=== PATIENT | female | born 1990 | race Caucasian/White ===

== ENCOUNTER 2019-09-14 10:11 | Inpatient (IN) | payer MEDICAID ==
[~2019-09-14] VITALS: Ht 162.6 cm; Wt 84.6 kg
[2019-09-14] MEDS: D5%-LACTATED RINGERS 1,000 ML IV SCH ×2 (13:14→21:14)
[2019-09-14] MEDS ORDERED: OXYTOCIN 30U/ 0.9% NaCL 500ML 500 ML IV PRN (13:14)
[2019-09-14] MEDS ORDERED: OXYTOCIN 30U/ 0.9% NaCL 500ML 500 ML IV ONE (13:14)
[2019-09-14] MEDS ORDERED: PREN1TAB60 PO (13:15)
[2019-09-14] MEDS ORDERED: ONDA4TAB7 PO (13:15)
[2019-09-14] MEDS ORDERED: OXYTOCIN 30U/ 0.9% NaCL 500ML 500 ML ONE (13:19)
[2019-09-14] MEDS ORDERED: NEWBORN KIT ONE (13:20)
[2019-09-14] MEDS ORDERED: LIDOCAINE 1%, 20ML ONE (13:20)
[2019-09-14] MEDS ORDERED: MISOPROSTOL 200 MCG TABLET ONE (13:20)
[2019-09-14] MEDS: LACTATED RINGERS 1,000 ML IV SCH ×2 (13:25→21:45)
[2019-09-14] MEDS ORDERED: TERBUTALINE 1 MG/ML, 1ML IVPush PRN (13:30)
[2019-09-14] MEDS ORDERED: ONDANSETRON 2MG/ML, 2ML IVPush PRN (13:30)
[2019-09-14] MEDS ORDERED: FENTANYL PF 100 MCG/2ML IV PRN (13:30)
[2019-09-14] MEDS ORDERED: SODIUM CHLORIDE FLUSH 10ML SYR IVF PRN (13:30)
[2019-09-14] MEDS ORDERED: TERBUTALINE 1 MG/ML, 1ML SQ PRN (13:30)
[2019-09-14] MEDS ORDERED: CALCIUM CARBONATE 500 MG TAB.CHEW PO PRN (13:30)
[2019-09-14 14:05] LABS: BASOPHILS # (AUTO) 0.03 x10^3/uL (0-0.1); BASOPHILS % (AUTO) 0 % (0-1); EOSINOPHILS # (AUTO) 0.02 x10^3/uL (0-0.4); EOSINOPHILS % (AUTO) 0 % (1-7); LYMPHOCYTES # (AUTO) 1.71 x10^3/uL (1-3.4); LYMPHOCYTES % (AUTO) 25 % (22-44); MD NO; MEAN CORPUSCULAR HGB CONC 31.8 g/dL (32.4-35.8); MEAN CORPUSCULAR VOLUME 78.5 fL (80-100); MEAN PLATELET VOLUME 9.9 fL (7.4-10.4); MONOCYTES # (AUTO) 0.36 x10^3/uL (0.2-0.8); MONOCYTES % (AUTO) 5 % (2-9); NEUTROPHILS # (AUTO) 4.83 x10^3/uL (1.8-6.8); NEUTROPHILS % (AUTO) 70 % (42-75); PLATELET COUNT 216 x10^3/uL (130-400); RED BLOOD COUNT 4.34 x10^6/uL (3.82-5.3); RED CELL DISTRIBUTION WIDTH 15.3 % (9.6-15.2)
[2019-09-14 19:15] VITALS: BP 118/70
[2019-09-14] MEDS ORDERED: FENTANYL PF 100 MCG/2ML ONE ×2 (21:43→23:22)
[2019-09-14] MEDS: FENTANYL PF 100 MCG/2ML IVPush PRN ×2 (21:44→23:24)
[2019-09-15] MEDS ORDERED: FENTANYL PF 100 MCG/2ML ONE ×2 (00:58→02:22)
[2019-09-15] MEDS: FENTANYL PF 100 MCG/2ML IVPush PRN ×2 (01:01→02:26)
[2019-09-15] MEDS ORDERED: FENTANYL/BUPIV./NS/PF 250 ML EPIDCONT SCH ×2 (02:21→03:48)
[2019-09-15] MEDS ORDERED: LACTATED RINGERS 1,000 ML IVBOLUS PRN ×2 (02:30→04:00)
[2019-09-15] MEDS ORDERED: FENTANYL/BUPIV./NS/PF 250 ML EPIDCONT ONE ×2 (02:40→03:28)
[2019-09-15] MEDS ORDERED: TERBUTALINE 1 MG/ML, 1ML ONE (03:18)
[2019-09-15] MEDS ORDERED: BUPIVACAINE 0.25% ONE ×2 (03:25→03:28)
[2019-09-15] MEDS ORDERED: LIDOCAINE/MPF 2%-EPI 1:200K, 20 ML ONE ×2 (03:28→06:32)
[2019-09-15] MEDS ORDERED: LACTATED RINGERS 1,000 ML IV SCH ×2 (03:48→08:27)
[2019-09-15] MEDS ORDERED: DIPHENHYDRAMINE 50 MG/ML, 1ML IVPush PRN ×2 (04:00→08:30)
[2019-09-15] MEDS ORDERED: NALOXONE 0.4 MG/ML, 1ML IVPush PRN (04:00)
[2019-09-15] MEDS ORDERED: ONDANSETRON 2MG/ML, 2ML IVPush PRN (04:00)
[2019-09-15] MEDS ORDERED: EPHEDRINE 50 MG/ML, 1ML IVPush PRN ×2 (04:00→08:30)
[2019-09-15] MEDS ORDERED: SODIUM CITRATE/CITRIC ACID 30 ML UDC ONE (06:21)
[2019-09-15] MEDS ORDERED: METOCLOPRAMIDE 5 MG/ML, 2ML ONE (06:21)
[2019-09-15] MEDS ORDERED: CEFAZOLIN 1,000 MG ONE ×3 (06:58→08:01)
[2019-09-15] MEDS ORDERED: OXYTOCIN 10 UNITS/ML, 1ML ONE (06:58)
[2019-09-15] MEDS ORDERED: AZITHROMYCIN 500 MG in SODIUM CHLORIDE 0.9% 250 ML IV ONE (07:00)
[2019-09-15] MEDS ORDERED: ONDANSETRON 2MG/ML, 2ML ONE (07:16)
[2019-09-15] MEDS ORDERED: EPHEDRINE 50 MG/ML, 1ML ONE (07:39)
[2019-09-15] MEDS: LACTATED RINGERS 1,000 ML IV SCH ×2 (08:27→18:27)
[2019-09-15] MEDS: OXYTOCIN 30U/ 0.9% NaCL 500ML 500 ML IV SCH ×2 (08:27→18:27)
[2019-09-15] MEDS ORDERED: MISOPROSTOL 200 MCG TABLET PR PRN (08:30)
[2019-09-15] MEDS ORDERED: LABETALOL 5MG/ML, 20ML IV PRN (08:30)
[2019-09-15] MEDS ORDERED: ONDANSETRON 2MG/ML, 2ML IV PRN ×2 (08:30)
[2019-09-15] MEDS ORDERED: OXYcodone 5 MG/5 ML ORAL.SOL UDC PO PRN (08:30)
[2019-09-15] MEDS ORDERED: HALOPERIDOL 5 MG/ML IV PRN (08:30)
[2019-09-15] MEDS ORDERED: DEXAMETHASONE 4 MG/ML, 1ML IV PRN (08:30)
[2019-09-15] MEDS: KETOROLAC 30 MG/1 ML IV SCH ×3 (08:30→20:09)
[2019-09-15] MEDS ORDERED: IBUPROFEN 600 MG TABLET PO PRN (08:30)
[2019-09-15] MEDS ORDERED: ACETAMINOPHEN 325 MG TABLET PO PRN (08:30)
[2019-09-15] MEDS ORDERED: METHYLERGONOVINE 0.2 MG/ML IM PRN (08:30)
[2019-09-15] MEDS ORDERED: METOCLOPRAMIDE 5 MG/ML, 2ML IV PRN (08:30)
[2019-09-15] MEDS ORDERED: SIMETHICONE 80 MG CHEW TAB PO PRN (08:30)
[2019-09-15] MEDS ORDERED: PROMETHAZINE 25 MG/ML, 1ML IV PRN (08:30)
[2019-09-15] MEDS ORDERED: IBUPROFEN 800 MG TABLET PO PRN (08:30)
[2019-09-15] MEDS ORDERED: FENTANYL PF 100 MCG/2ML IV PRN (08:30)
[2019-09-15] MEDS ORDERED: MORPHINE SULFATE 4 MG/ML, 1ML IVPush PRN (08:30)
[2019-09-15] MEDS ORDERED: SODIUM CITRATE/CITRIC ACID 30 ML UDC PO ONE (10:00)
[2019-09-15] MEDS ORDERED: METOCLOPRAMIDE 5 MG/ML, 2ML IV ONE (10:00)
[2019-09-15] MEDS: OXYcodone/APAP 5/325MG TABLET PO PRN ×4 (10:32→22:23)
[2019-09-15] MEDS: PRENATAL VIT/IRON/FA 1 EACH TABLET PO SCH (10:32)
[2019-09-15 10:45] VITALS: BP 118/77
[2019-09-15 16:08] LABS: BASOPHILS # (AUTO) 0.03 x10^3/uL (0-0.1); BASOPHILS % (AUTO) 0 % (0-1); EOSINOPHILS # (AUTO) 0.01 x10^3/uL (0-0.4); EOSINOPHILS % (AUTO) 0 % (1-7); LYMPHOCYTES # (AUTO) 1.36 x10^3/uL (1-3.4); LYMPHOCYTES % (AUTO) 14 % (22-44); MD NO; MEAN CORPUSCULAR HEMOGLOBIN 25.3 pg (27.0-34.8); MEAN CORPUSCULAR HGB CONC 32.4 g/dL (32.4-35.8); MEAN CORPUSCULAR VOLUME 78.1 fL (80-100); MEAN PLATELET VOLUME 9.5 fL (7.4-10.4); MONOCYTES % (AUTO) 4 % (2-9); NEUTROPHILS # (AUTO) 7.83 x10^3/uL (1.8-6.8); NEUTROPHILS % (AUTO) 81 % (42-75); PLATELET COUNT 169 x10^3/uL (130-400); RED BLOOD COUNT 3.39 x10^6/uL (3.82-5.3); RED CELL DISTRIBUTION WIDTH 15.1 % (9.6-15.2)
[2019-09-15 16:30] VITALS: BP 123/73
[2019-09-15 20:00] VITALS: BP 108/72
[2019-09-15] MEDS: DOCUSATE 100 MG CAPSULE PO PRN (20:09)
[2019-09-16 00:39] VITALS: BP 111/81
[2019-09-16] MEDS: KETOROLAC 30 MG/1 ML IV SCH ×4 (02:38→20:39)
[2019-09-16] MEDS: OXYcodone/APAP 5/325MG TABLET PO PRN ×4 (02:38→20:40)
[2019-09-16 03:19] VITALS: BP 106/83
[2019-09-16] MEDS: LACTATED RINGERS 1,000 ML IV SCH ×2 (04:27→21:18)
[2019-09-16] MEDS: OXYTOCIN 30U/ 0.9% NaCL 500ML 500 ML IV SCH ×2 (04:49→21:18)
[2019-09-16 07:20] VITALS: BP 110/74
[2019-09-16] MEDS: DOCUSATE 100 MG CAPSULE PO PRN ×2 (08:35→20:40)
[2019-09-16] MEDS: PRENATAL VIT/IRON/FA 1 EACH TABLET PO SCH (08:35)
[2019-09-16 20:02] VITALS: BP 126/78
[2019-09-16 20:50] VITALS: BP 112/73
[2019-09-16] MEDS ORDERED: MEASLES,MUMPS&RUBELLA VACC/PF 0.5 ML SQ-VACC ONE (21:20)
[2019-09-17] MEDS: OXYTOCIN 30U/ 0.9% NaCL 500ML 500 ML IV SCH ×3 (00:27→20:27)
[2019-09-17] MEDS: LACTATED RINGERS 1,000 ML IV SCH ×3 (00:27→18:22)
[2019-09-17] MEDS: KETOROLAC 30 MG/1 ML IV SCH (02:31)
[2019-09-17] MEDS: OXYcodone/APAP 5/325MG TABLET PO PRN ×2 (02:32→14:51)
[2019-09-17 08:20] VITALS: BP 120/70
[2019-09-17] MEDS ORDERED: IBUPROFEN 800 MG TABLET PO PRN (08:30)
[2019-09-17 09:23] LABS: BASOPHILS # (AUTO) 0.01 x10^3/uL (0-0.1); BASOPHILS % (AUTO) 0 % (0-1); EOSINOPHILS # (AUTO) 0.08 x10^3/uL (0-0.4); EOSINOPHILS % (AUTO) 1 % (1-7); LYMPHOCYTES # (AUTO) 1.75 x10^3/uL (1-3.4); LYMPHOCYTES % (AUTO) 16 % (22-44); MD NO; MEAN CORPUSCULAR HEMOGLOBIN 25.2 pg (27.0-34.8); MEAN CORPUSCULAR HGB CONC 31.7 g/dL (32.4-35.8); MEAN CORPUSCULAR VOLUME 79.5 fL (80-100); MEAN PLATELET VOLUME 9.1 fL (7.4-10.4); MONOCYTES # (AUTO) 0.52 x10^3/uL (0.2-0.8); MONOCYTES % (AUTO) 5 % (2-9); NEUTROPHILS # (AUTO) 8.59 x10^3/uL (1.8-6.8); NEUTROPHILS % (AUTO) 79 % (42-75); PLATELET COUNT 223 x10^3/uL (130-400); RED BLOOD COUNT 3.36 x10^6/uL (3.82-5.3); RED CELL DISTRIBUTION WIDTH 15.6 % (9.6-15.2)
[2019-09-17] MEDS ORDERED: AMPICILLIN/SULBACTAM 2 GM in SODIUM CHLORIDE 0.9% 100 ML IV SCH (09:30)
[2019-09-17] MEDS: FERROUS SULFATE 325 MG TABLET PO SCH ×2 (09:30→17:21)
[2019-09-17] MEDS: PRENATAL VIT/IRON/FA 1 EACH TABLET PO SCH (09:30)
[2019-09-17] MEDS: IBUPROFEN 600 MG TABLET PO PRN ×3 (11:00→23:26)
[2019-09-17] MEDS: AMPICILLIN/SULBACTAM 3 GM in SODIUM CHLORIDE 0.9% 100 ML IV SCH ×3 (11:00→23:16)
[2019-09-17 12:15] VITALS: BP 108/70
[2019-09-17 13:59] LABS: RAPID INFLUENZA A Negative (Negative); RAPID INFLUENZA B Negative (Negative)
[2019-09-17 16:26] VITALS: BP 110/68
[2019-09-17] MEDS ORDERED: LACTATED RINGERS 500 ML IVBOLUS ONE (17:00)
[2019-09-17] MEDS: ACETAMINOPHEN 500 MG TABLET PO PRN (17:21)
[2019-09-17 20:30] VITALS: BP 100/64
[2019-09-17] MEDS: OXYcodone IR 5MG TABLET PO PRN (23:26)
[2019-09-18] VITALS (7 sets, daily range): BP systolic 95–121; BP diastolic 51–84
[2019-09-18] MEDS: AMPICILLIN/SULBACTAM 3 GM in SODIUM CHLORIDE 0.9% 100 ML IV SCH ×4 (04:46→23:00)
[2019-09-18] MEDS: LACTATED RINGERS 1,000 ML IV SCH ×3 (04:48→19:30)
[2019-09-18] MEDS: IBUPROFEN 600 MG TABLET PO PRN ×3 (04:56→19:30)
[2019-09-18] MEDS: ACETAMINOPHEN 500 MG TABLET PO PRN ×2 (04:57→23:44)
[2019-09-18] MEDS: OXYcodone IR 5MG TABLET PO PRN ×3 (04:57→17:03)
[2019-09-18 05:56] LABS: BASOPHILS # (AUTO) 0.02 x10^3/uL (0-0.1); BASOPHILS % (AUTO) 0 % (0-1); EOSINOPHILS # (AUTO) 0.07 x10^3/uL (0-0.4); EOSINOPHILS % (AUTO) 1 % (1-7); LYMPHOCYTES # (AUTO) 0.83 x10^3/uL (1-3.4); LYMPHOCYTES % (AUTO) 14 % (22-44); MD NO; MEAN CORPUSCULAR HEMOGLOBIN 25.1 pg (27.0-34.8); MEAN CORPUSCULAR HGB CONC 31.9 g/dL (32.4-35.8); MEAN CORPUSCULAR VOLUME 78.8 fL (80-100); MEAN PLATELET VOLUME 8.3 fL (7.4-10.4); MONOCYTES # (AUTO) 0.13 x10^3/uL (0.2-0.8); MONOCYTES % (AUTO) 2 % (2-9); NEUTROPHILS # (AUTO) 4.96 x10^3/uL (1.8-6.8); NEUTROPHILS % (AUTO) 83 % (42-75); PLATELET COUNT 212 x10^3/uL (130-400); RED BLOOD COUNT 2.93 x10^6/uL (3.82-5.3); RED CELL DISTRIBUTION WIDTH 15.5 % (9.6-15.2)
[2019-09-18] MEDS: OXYTOCIN 30U/ 0.9% NaCL 500ML 500 ML IV SCH ×2 (06:27→14:31)
[2019-09-18] MEDS: PRENATAL VIT/IRON/FA 1 EACH TABLET PO SCH (08:53)
[2019-09-18] MEDS: FERROUS SULFATE 325 MG TABLET PO SCH (08:54)
[2019-09-18 11:42] LABS: MEAN CORPUSCULAR HGB CONC 31.8 g/dL (32.4-35.8); MEAN CORPUSCULAR VOLUME 78.6 fL (80-100); MEAN PLATELET VOLUME 7.7 fL (7.4-10.4); PLATELET COUNT 216 x10^3/uL (130-400); RED CELL DISTRIBUTION WIDTH 15.7 % (9.6-15.2)
[2019-09-18 11:52] LABS: ALBUMIN 1.6 g/dL (3.4-5.0); ANION GAP 6 mmol/L (5-15); CALCIUM 7.8 mg/dL (8.5-10.1); CHLORIDE 106 mmol/L (98-107)
[2019-09-18 11:59] LABS: ALANINE AMINOTRANSFERASE 33 U/L (12-78); ALKALINE PHOSPHATASE 112 U/L (45-117); BILIRUBIN,TOTAL 0.2 mg/dL (0.2-1.0); CREATININE 0.36 mg/dL (0.55-1.02)
[2019-09-18 12:05] LABS: BASOPHILS % (AUTO) 0 % (0-1); EOSINOPHILS # (AUTO) 0.03 x10^3/uL (0-0.4); EOSINOPHILS % (AUTO) 1 % (1-7); LYMPHOCYTES # (AUTO) 0.44 x10^3/uL (1-3.4); LYMPHOCYTES % (AUTO) 10 % (22-44); MD SCAN; MONOCYTES # (AUTO) 0.19 x10^3/uL (0.2-0.8); MONOCYTES % (AUTO) 4 % (2-9); NEUTROPHILS # (AUTO) 3.86 x10^3/uL (1.8-6.8); NEUTROPHILS % (AUTO) 85 % (42-75)
[2019-09-18] MEDS: DOCUSATE 100 MG CAPSULE PO PRN (19:30)
[2019-09-18] MEDS ORDERED: OMNIPAQUE 350 MG/ML, 100ML BOTTLE ONE (23:47)
[2019-09-19] VITALS (9 sets, daily range): BP systolic 110–124; BP diastolic 63–84
[2019-09-19] MEDS: IBUPROFEN 600 MG TABLET PO PRN ×3 (02:11→18:22)
[2019-09-19] MEDS: OXYTOCIN 30U/ 0.9% NaCL 500ML 500 ML IV SCH ×2 (02:27→12:27)
[2019-09-19] MEDS ORDERED: PHARMACOKINETIC MONITORING MC PRN (04:00)
[2019-09-19] MEDS ORDERED: PHARMACOKINETIC CONSULTATION MC ONE (04:00)
[2019-09-19] MEDS: LACTATED RINGERS 1,000 ML IV SCH ×3 (04:15→19:00)
[2019-09-19] MEDS: CLINDAMYCIN PMX 900MG/50ML 50 ML IV SCH ×3 (04:35→20:08)
[2019-09-19] MEDS: GENTAMICIN 400 MG in SODIUM CHLORIDE 0.9% 100 ML IV SCH (05:21)
[2019-09-19] MEDS: AMPICILLIN 2 GM in SODIUM CHLORIDE 0.9% 100 ML IV SCH ×3 (06:30→18:23)
[2019-09-19 07:43] LABS: MEAN CORPUSCULAR HEMOGLOBIN 25.2 pg (27.0-34.8); MEAN CORPUSCULAR VOLUME 78.8 fL (80-100); MEAN PLATELET VOLUME 8.3 fL (7.4-10.4); PLATELET COUNT 226 x10^3/uL (130-400); RED CELL DISTRIBUTION WIDTH 16.1 % (9.6-15.2)
[2019-09-19 08:09] LABS: MD YES
[2019-09-19 08:12] LABS: BAND#(MANUAL) 0.35 x10^3/uL; BANDS%(MANUAL) 6 % (0-7); BASOS#(MANUAL) 0.06 x10^3/uL (0-0.1); BASOS% (MANUAL) 1 % (0-1); EOS#(MANUAL) 0.18 x10^3/uL (0.0-0.4); EOS% (MANUAL) 3 % (1-7); LYMPH#(MANUAL) 1.18 x10^3/uL (1-3.4); LYMPHS% (MANUAL) 20 % (22-44); MONOS% (MANUAL) 5 % (2-9); SEG#(MANUAL) 3.84 x10^3/uL (1.8-6.8); SEGS% (MANUAL) 65 % (42-75)
[2019-09-19 08:13] LABS: ANISOCYTOSIS 1+; HYPOCHROMIA 1+; MICROCYTOSIS 1+
[2019-09-19 08:14] LABS: <PLATELET ESTIMATE> ADEQUATE; <PLT MORPHOLOGY> NORMAL PLT MORPH; OVALOCYTES 1+; POLYCHROMASIA 1+
[2019-09-19] MEDS: DOCUSATE 100 MG CAPSULE PO PRN (08:31)
[2019-09-19] MEDS: PRENATAL VIT/IRON/FA 1 EACH TABLET PO SCH (08:31)
[2019-09-19] MEDS: FERROUS SULFATE 325 MG TABLET PO SCH (08:31)
[2019-09-19] MEDS: GENTAMICIN PER PHARMACY MC SCH (09:00)
[2019-09-19] MEDS: OXYcodone IR 5MG TABLET PO PRN ×2 (10:48→18:22)
[2019-09-20 00:20] VITALS: BP 118/80
[2019-09-20] MEDS: AMPICILLIN 2 GM in SODIUM CHLORIDE 0.9% 100 ML IV SCH ×4 (00:54→19:26)
[2019-09-20] MEDS: IBUPROFEN 600 MG TABLET PO PRN ×3 (04:20→19:26)
[2019-09-20] MEDS: CLINDAMYCIN PMX 900MG/50ML 50 ML IV SCH ×3 (04:20→20:21)
[2019-09-20] MEDS: LACTATED RINGERS 1,000 ML IV SCH ×3 (04:21→19:26)
[2019-09-20 04:24] VITALS: BP 137/86
[2019-09-20] MEDS: GENTAMICIN 400 MG in SODIUM CHLORIDE 0.9% 100 ML IV SCH (05:26)
[2019-09-20 05:56] LABS: BASOPHILS # (AUTO) 0.02 x10^3/uL (0-0.1); BASOPHILS % (AUTO) 0 % (0-1); EOSINOPHILS # (AUTO) 0.11 x10^3/uL (0-0.4); EOSINOPHILS % (AUTO) 2 % (1-7); LYMPHOCYTES # (AUTO) 1.49 x10^3/uL (1-3.4); LYMPHOCYTES % (AUTO) 25 % (22-44); MD NO; MEAN CORPUSCULAR HEMOGLOBIN 25.5 pg (27.0-34.8); MEAN CORPUSCULAR HGB CONC 32.3 g/dL (32.4-35.8); MEAN CORPUSCULAR VOLUME 79.1 fL (80-100); MONOCYTES # (AUTO) 0.59 x10^3/uL (0.2-0.8); MONOCYTES % (AUTO) 10 % (2-9); NEUTROPHILS # (AUTO) 3.65 x10^3/uL (1.8-6.8); NEUTROPHILS % (AUTO) 62 % (42-75); PLATELET COUNT 247 x10^3/uL (130-400); RED BLOOD COUNT 3.07 x10^6/uL (3.82-5.3); RED CELL DISTRIBUTION WIDTH 16.1 % (9.6-15.2)
[2019-09-20 08:00] VITALS: BP 129/84
[2019-09-20] MEDS: PRENATAL VIT/IRON/FA 1 EACH TABLET PO SCH (08:16)
[2019-09-20] MEDS: FERROUS SULFATE 325 MG TABLET PO SCH (08:16)
[2019-09-20] MEDS: DOCUSATE 100 MG CAPSULE PO PRN (08:16)
[2019-09-20] MEDS: GENTAMICIN PER PHARMACY MC SCH (09:00)
[2019-09-20 11:52] VITALS: BP 110/63
[2019-09-20 16:00] VITALS: BP 139/85
[2019-09-20 19:33] VITALS: BP 123/74
[2019-09-21] MEDS: AMPICILLIN 2 GM in SODIUM CHLORIDE 0.9% 100 ML IV SCH ×2 (00:46→07:19)
[2019-09-21] MEDS: OXYcodone IR 5MG TABLET PO PRN ×2 (00:46→19:44)
[2019-09-21 00:50] VITALS: BP 120/78
[2019-09-21] MEDS: IBUPROFEN 600 MG TABLET PO PRN ×3 (02:14→17:26)
[2019-09-21] MEDS: CLINDAMYCIN PMX 900MG/50ML 50 ML IV SCH ×2 (04:24→12:36)
[2019-09-21] MEDS: LACTATED RINGERS 1,000 ML IV SCH ×4 (04:25→20:48)
[2019-09-21 04:29] VITALS: BP 108/72
[2019-09-21] MEDS ORDERED: GENTAMICIN 320 MG in SODIUM CHLORIDE 0.9% 100 ML IV SCH (05:00)
[2019-09-21 07:55] VITALS: BP 117/77
[2019-09-21] MEDS: PRENATAL VIT/IRON/FA 1 EACH TABLET PO SCH (08:09)
[2019-09-21] MEDS: DOCUSATE 100 MG CAPSULE PO PRN ×2 (08:09→19:42)
[2019-09-21] MEDS: FERROUS SULFATE 325 MG TABLET PO SCH (08:09)
[2019-09-21 13:46] VITALS: BP 105/67
[2019-09-21 19:16] VITALS: BP 133/91
[2019-09-22 00:31] VITALS: BP 135/85
[2019-09-22] MEDS: IBUPROFEN 600 MG TABLET PO PRN ×2 (02:21→09:31)
[2019-09-22 08:45] VITALS: BP 130/80
[2019-09-22] MEDS ORDERED: FERR324T5 PO (09:06)
[2019-09-22] MEDS ORDERED: OXYC-302 PO (09:09)
[2019-09-22] MEDS ORDERED: IBUP-1222 PO (09:10)
[2019-09-22] MEDS: PRENATAL VIT/IRON/FA 1 EACH TABLET PO SCH (09:30)
[2019-09-22] MEDS: DOCUSATE 100 MG CAPSULE PO PRN (09:31)
[2019-09-22] MEDS: FERROUS SULFATE 325 MG TABLET PO SCH (09:31)
== END 2019-09-22 11:00 | disposition home or self-care (01) | DRG 786 ==
LOC: MERGE 13:08 → LDIP 13:08 → 2NW 09-15 10:17
PROVIDERS: ADMIT Student in an Organized Health Care Education/Training Program; ATTEND Student in an Organized Health Care Education/Training Program
PROC: 10D00Z1 Extraction of Products of Conception, Low, Open Approach (ICD-10-PCS; principal; 2019-09-15)
PROC: 30233N1 Transfusion of Nonautologous Red Blood Cells into Peripheral Vein, Percutaneous Approach (ICD-10-PCS; 2019-09-19)
DX: O32.8XX0 Maternal care for other malpresentation of fetus, not applicable or unspecified (principal); O75.3 Other infection during labor; D62 Acute posthemorrhagic anemia; G89.18 Other acute postprocedural pain; J45.909 Unspecified asthma, uncomplicated; O76 Abnormality in fetal heart rate and rhythm complicating labor and delivery; O99.52 Diseases of the respiratory system complicating childbirth; Z37.0 Single live birth; Z3A.40 40 weeks gestation of pregnancy; Z80.3 Family history of malignant neoplasm of breast; Z82.49 Family history of ischemic heart disease and other diseases of the circulatory system; Z83.3 Family history of diabetes mellitus; O90.81 Anemia of the puerperium
CPT/HCPCS: 36415; 74177; 80053; 80170; 82803; 85025; 86592; 86850; 86900; 86923; 87400; G0378; J0290; J0295; J0456; J0690; J1885; J2405; J3010; J3490; J7120; Q9967; J1580; J2590; J2765; J7050; P9016

== ENCOUNTER 2019-09-27 08:49 | Emergency (ER) | payer OTHER, MEDICAID ==
[~2019-09-27] VITALS: Ht 162.6 cm; Wt 75.0 kg
[~2019-09-27 08:49] MED LIST: FERR324T5 PO; IBUP-1222 PO; ONDA4TAB7 PO; OXYC-302 PO; PREN1TAB60 PO
--- NOTE | 2019-09-27 09:27 | NUR ---
TO COURT FROM LOBBY
--- NOTE | 2019-09-27 09:33 | NUR ---
MD MENJIVAR AT BEDSIDE.
--- NOTE | 2019-09-27 09:35 | NUR ---
pt presents to ED after seeing OBGYN for check. Pt reports she has been febrile at home last night with tenderness to bilateral pelvis. pt was dc'd 09/22/19 s/p c section and tx for pelvic abcess. MD You has performed breast exam and eval of surgical site. pt is negative for s/sx mastitis. 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 pt was sent to ED to rule out recurrent pelvic abcess. pt and (at bedside) updated with POC. bp and spo2 monitors in place, blanket provided, call light in reach.
[2019-09-27 10:25] LABS: MICROSCOPIC NOT IND
[2019-09-27 10:26] LABS: BASOPHILS # (AUTO) 0.03 x10^3/uL (0-0.1); BASOPHILS % (AUTO) 0 % (0-1); EOSINOPHILS # (AUTO) 0.02 x10^3/uL (0-0.4); EOSINOPHILS % (AUTO) 0 % (1-7); LYMPHOCYTES # (AUTO) 2.02 x10^3/uL (1-3.4); LYMPHOCYTES % (AUTO) 17 % (22-44); MD NO; MEAN CORPUSCULAR HEMOGLOBIN 24.8 pg (27.0-34.8); MEAN CORPUSCULAR HGB CONC 31.4 g/dL (32.4-35.8); MEAN CORPUSCULAR VOLUME 79.1 fL (80-100); MEAN PLATELET VOLUME 6.8 fL (7.4-10.4); MONOCYTES # (AUTO) 0.71 x10^3/uL (0.2-0.8); MONOCYTES % (AUTO) 6 % (2-9); NEUTROPHILS # (AUTO) 9.49 x10^3/uL (1.8-6.8); NEUTROPHILS % (AUTO) 77 % (42-75); PLATELET COUNT 526 x10^3/uL (130-400); RED BLOOD COUNT 4.17 x10^6/uL (3.82-5.3)
[2019-09-27 10:39] LABS: ALANINE AMINOTRANSFERASE 29 U/L (12-78); ALBUMIN 2.7 g/dL (3.4-5.0); ANION GAP 8 mmol/L (5-15); CALCIUM 8.3 mg/dL (8.5-10.1); CHLORIDE 102 mmol/L (98-107); CREATININE 0.55 mg/dL (0.55-1.02)
[2019-09-27 10:43] LABS: ALKALINE PHOSPHATASE 147 U/L (45-117); BILIRUBIN,TOTAL 0.8 mg/dL (0.2-1.0); TOTAL PROTEIN 7.2 g/dL (6.4-8.2)
--- NOTE | 2019-09-27 10:51 | NUR ---
pt has not breastfed since 0100 this am, breast pump requested from . 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 pt resting on gurney, a&o, resps even and unlabored. awaiting CTs and dispo. nadn at this time.
--- NOTE | 2019-09-27 11:02 | NUR ---
pt to CT
--- NOTE | 2019-09-27 11:23 | NUR ---
pt back from CT, [facility] consultant at bedside to assist with breast pump at this time.
--- NOTE | 2019-09-27 11:32 | NUR ---
pt pumping with hospital breast pump, tolerating well, denies breast pain. pt a&o, resps even and unlabored. pt awaiting CT results and dispo at this time,
--- NOTE | 2019-09-27 11:55 | NUR ---
report given to jas Lang.
[2019-09-27] MEDS ORDERED: OMNIPAQUE 350 MG/ML, 100ML BOTTLE ONE (12:10)
[2019-09-27 12:33] VITALS: BP 123/60
== END 2019-09-27 12:34 | disposition home or self-care (01) ==
LOC: ED 12:23
DX: R50.9 Fever, unspecified (principal); J45.909 Unspecified asthma, uncomplicated
CPT/HCPCS: 36415; 71260; 74177; 80053; 81003; 83690; 84703; 85025; 87040; 99284; Q9967